=== PATIENT | male | born 1965 | race Caucasian/White ===

== ENCOUNTER → 2016-08-23 | Outpatient (CLI) | payer OTHER ==
--- NOTE | 2016-08-23 14:07 | RAD ---
HISTORY: Preop for finger surgery Study: PA and lateral chest Comparison: None Findings: The trachea is midline. The cardiac silhouette is unremarkable. The lungs are clear without focal infiltrate or effusion. The bony thorax is unremarkable. IMPRESSION: 1. No acute cardiopulmonary disease. Reported By:
[2016-08-23 14:13] LABS: BASOPHILS # (AUTO) 0.1 X10^3/uL (0.0-0.1); BASOPHILS % (AUTO) 1.1 % (0.2-1.0); EOSINOPHILS # (AUTO) 0.1 x10^3/uL (0.0-0.2); EOSINOPHILS % (AUTO) 1.4 % (0.9-2.9); HEMATOCRIT 39.3 % (42.0-54.0); HEMOGLOBIN 13.4 g/dL (13.5-18.0); LYMPHOCYTES # (AUTO) 1.8 X10^3/uL (1.3-2.9); LYMPHOCYTES % (AUTO) 17.3 % (21.0-51.0); MEAN CORPUSCULAR HEMOGLOBIN 27.7 pg (27.0-34.0); MEAN CORPUSCULAR HGB CONC 34.2 g/dL (33.0-35.0); MEAN CORPUSCULAR VOLUME 81.1 fL (80.0-100.0); MONOCYTES # (AUTO) 0.8 x10^3/uL (0.3-0.8); MONOCYTES % (AUTO) 7.9 % (0.0-13.0); NEUTROPHILS # (AUTO) 7.6 x10^3/uL (2.2-4.8); NEUTROPHILS % (AUTO) 72.3 % (42.0-75.0); PLATELET COUNT 274 X10^3/uL (150.0-450.0); RED BLOOD COUNT 4.84 X10^6/uL (4.7-6.0); RED CELL DISTRIBUTION WIDTH 14.1 % (11.6-16.5); WHITE BLOOD COUNT 10.5 X10^3/uL (3.6-10.0)
[2016-08-23 14:14] LABS: BILIRUBIN,URINE NEGATIVE (NEGATIVE); BLOOD/HEMOGLOBIN,URINE 2+ (NEGATIVE); GLUCOSE, URINE NEGATIVE (NEGATIVE); KETONES,URINE NEGATIVE (NEGATIVE); LEUKOCYTE ESTERASE ,URINE NEGATIVE (NEGATIVE); NITRITES,URINE NEGATIVE (NEGATIVE); PROTEIN,URINE NEGATIVE (NEGATIVE); UROBILINOGEN,URINE NORMAL (NORMAL)
[2016-08-23 14:23] LABS: ALANINE AMINOTRANSFERASE 48 Units/L (12-78); ALBUMIN 3.8 g/dL (3.4-5.0); ALKALINE PHOSPHATASE 86 Units/L (46-116); AMORPHOUS SEDIMENT,UR TRACE /HPF (NEGATIVE); APPEARANCE,URINE CLEAR (CLEAR); ASPARTATE AMINO TRANSFERASE 26 Units/L (15-37); BACTERIA,URINE TRACE /HPF (NEGATIVE); BLOOD UREA NITROGEN 14 mg/dL (7-18); CALCIUM 9.5 mg/dL (8.5-10.1); CARBON DIOXIDE 28.9 mmol/L (21-32); CHLORIDE 105 mmol/L (98-107); COLOR,URINE YELLOW (YELLOW); CREATININE 1.47 mg/dL (0.70-1.30); GLUCOSE 89 mg/dL (65-99); SODIUM 139 mmol/L (136-145); SQUAMOUS EPITHELIAL CELL,UR FEW /HPF (NEGATIVE); TOTAL PROTEIN 7.6 g/dL (6.4-8.2); eGFR BLACK RACES > 60 (>60); eGFR NON BLACK RACES 54 (>60)
== END ==
LOC: LAB 13:28
PROVIDERS: ATTEND Specialist
DX: Z01.818 Encounter for other preprocedural examination (principal); Z01.810 Encounter for preprocedural cardiovascular examination; Z01.811 Encounter for preprocedural respiratory examination; Z79.899 Other long term (current) drug therapy; Z11.8 Encounter for screening for other infectious and parasitic diseases; S68.113D Complete traumatic metacarpophalangeal amputation of left middle finger, subsequent encounter
CPT/HCPCS: 36415; 71020; 80053; 81001; 85025; 87641; 93005; 93010

== ENCOUNTER 2016-08-24 07:50 | Day surgery (SDC) | payer OTHER ==
[2016-08-24] MEDS ORDERED: D5 LR 1000 ML 1,000 ML IV ONE (08:00)
[2016-08-24] MEDS ORDERED: ANCEF VIAL 1 GM ONE (08:01)
[2016-08-24] MEDS ORDERED: NS 50 ML IV + SPIKE MINIBAG* 50 ML IV ONE (08:01)
[2016-08-24] MEDS ORDERED: DILAUDID INJ ONE (09:30)
[2016-08-24] MEDS ORDERED: FENTANYL INJ 100 mcg ONE (09:30)
[2016-08-24] MEDS ORDERED: MARCAINE 0.5% ONE (09:30)
[2016-08-24] MEDS ORDERED: NS IRRIGATION 1000 ML 1,000 ML with BACITRACIN VIAL 50,000 UNT IR ONE ×2 (09:45)
[2016-08-24] MEDS ORDERED: EPHEDRINE SULFATE INJ ONE (09:47)
[2016-08-24] MEDS ORDERED: DIPRIVAN VIAL ONE (09:47)
[2016-08-24] MEDS ORDERED: ZOFRAN INJ 4 MG VIAL ONE (09:47)
[2016-08-24] MEDS ORDERED: BENADRYL INJ 50 MG VIAL IVP PRN (10:39)
[2016-08-24] MEDS ORDERED: PHENERGAN INJ 25 MG IVP PRN (10:39)
[2016-08-24] MEDS ORDERED: ZOFRAN INJ 4 MG VIAL IVP PRN (10:39)
[2016-08-24] MEDS ORDERED: DILAUDID INJ IVP PRN (10:39)
[2016-08-24 13:30] VITALS: BP 114/81
[2016-08-24] MEDS ORDERED: ULTANE GAS IN ONE (15:52)
[2016-08-24] MEDS ORDERED: VERSED ONE (15:52)
== END 2016-08-24 12:05 | disposition home or self-care (01) | DRG 909 ==
LOC: SURG1 07:50
PROVIDERS: ATTEND Specialist
PROC: 0PBV0ZZ Excision of Left Finger Phalanx, Open Approach (ICD-10-PCS; 2016-08-24)
PROC: 0HBQXZZ Excision of Finger Nail, External Approach (ICD-10-PCS; principal; 2016-08-24 10:15)
DX: S68.123A Partial traumatic metacarpophalangeal amputation of left middle finger, initial encounter (principal); X58.XXXA Exposure to other specified factors, initial encounter
CPT/HCPCS: A4222; S0020; J0690; J1170; J2250; J2405; J3010; J3490; J7120